=== PATIENT | male | born 1955 | race Caucasian/White ===

== ENCOUNTER 2025-03-18 07:21 | Emergency (ER) | payer MEDICARE ==
[2025-03-18] MEDS: Ketorolac 30 MG/ML SDV IM ONE (07:55)
[2025-03-18] MEDS: Take Home: Acetaminophen/oxyCODONE 325-5 MG, 5 Tab Pack PO ONE (09:08)
== END 2025-03-18 09:41 | disposition home or self-care (01) ==
LOC: VM.ED 07:21
DX: S62.114A Nondisplaced fracture of triquetrum [cuneiform] bone, right wrist, initial encounter for closed fracture (principal); Z88.1 Allergy status to other antibiotic agents; Z88.8 Allergy status to other drugs, medicaments and biological substances; Z79.899 Other long term (current) drug therapy; W23.0XXA Caught, crushed, jammed, or pinched between moving objects, initial encounter
CPT/HCPCS: 29125; 73110-RT; 96372; 99283; 99283-25; A9270-GY; J1885